=== PATIENT | male | born 1960 | race Caucasian/White ===

== ENCOUNTER 2021-08-30 11:56 | Emergency (ER) | payer BC ==
[2021-08-30 13:06] LABS: #Eosinphils 0.1 thou/uL (0.0-0.7); #Lymphocytes 2.6 thou/uL (1.20-3.40); #Monocytes 0.8 thou/uL (0.11-0.59); #Neutrophils 6.5 thou/uL (1.40-6.50); %Basophils 0.1 % (0.0-1.0); %Eosinophils 0.5 % (0.0-10.0); %Lymphocytes 25.7 % (21.0-51.0); %Monocytes 8.3 % (0.0-10.0); %Neutrophils 65.4 % (42.0-75.0); Hemoglobin 18.1 g/dL (14.0-18.0); Mean Corpuscular HGB CONC 34.6 g/dL (32.0-36.0); Mean Corpuscular Hemoglobin 31.8 pg (27.0-31.0); Mean Corpuscular Volume 91.8 fL (78.0-98.0); Mean Platelet Volume 7.3 fL (7.4-10.4); Platelet Count 170 thou/uL (130-400); RBC Distribution Width 12.7 % (11.5-14.5); Red Blood Cell (RBC) Count 5.69 mill/uL (4.70-6.10); White Blood Cell (WBC) Count 9.9 thou/uL (4.8-10.8)
[2021-08-30 13:28] LABS: ALT (SGPT) 25 U/L (8-55); AST (SGOT) 15 U/L (5-34); Albumin 4.5 g/dL (3.4-4.8); Alkaline Phosphatase 119 U/L (40-110); Anion Gap 15 mmol/L (10-20); BUN (Urea Nitrogen) 12 mg/dL (8.4-25.7); Bilirubin, Total 1.6 mg/dL (0.2-1.2); Calc. Creatinine Clearance 0 mL/min (70-130); Calcium 9.3 mg/dL (7.8-10.44); Carbon Dioxide 25 mmol/L (23-31); Chloride 99 mmol/L (98-107); Globulin 2.9 g/dL (2.4-3.5); Glucose 165 mg/dL (80-115); Lipase 13 U/L (8-78); Potassium 4.3 mmol/L (3.5-5.1); Protein, Total 7.4 g/dL (5.8-8.1); Sodium 135 mmol/L (136-145)
[2021-08-30] MEDS ORDERED: Mag-Al 1200 mg/1200 mg/30 ML UDCUP ONE (14:38)
[2021-08-30] MEDS ORDERED: Lidocaine Viscous Sol 2% 15 ml UD Cup ONE (14:38)
[2021-08-30 15:16] LABS: Bilirubin Negative (Negative); Blood, Urine Negative (Negative); Clarity Clear (Clear); Glucose, Urine (Dipstick) Greater than 1000 mg/dL (Negative); Ketone, Urine 40 mg/dL (Negative); Leukocyte Negative Leu/uL (Negative); Nitrite Negative (Negative); Protein, Urine (Dipstick) 10 mg/dL (Neg-Trace); Specific Gravity, Urine 1.034 (1.002-1.036); Urobilinogen Normal mg/dL (Less than 2); pH, Urine 5.5 (5.0-9.0)
== END 2021-08-30 16:56 | disposition home or self-care (01) ==
LOC: ERS 11:56
DX: K29.00 Acute gastritis without bleeding (principal); Z79.899 Other long term (current) drug therapy; Z79.82 Long term (current) use of aspirin; I10 Essential (primary) hypertension; I48.91 Unspecified atrial fibrillation; E11.9 Type 2 diabetes mellitus without complications; K21.9 Gastro-esophageal reflux disease without esophagitis; E78.00 Pure hypercholesterolemia, unspecified
CPT/HCPCS: 36415; 71045; 76705; 80053; 81003; 83690; 84484; 85025; 93005

== ENCOUNTER 2023-05-12 16:00 | Inpatient (IN) | payer BC ==
[2023-05-12 16:42] LABS: #Eosinphils 0.1 thou/uL (0.0-0.7); #Neutrophils 7.6 thou/uL (1.40-6.50); %Basophils 0.3 % (0.0-1.0); %Eosinophils 0.4 % (0.0-10.0); %Lymphocytes 24.5 % (21.0-51.0); %Monocytes 8.4 % (0.0-10.0); %Neutrophils 65.9 % (42.0-75.0); Hemoglobin 18.3 g/dL (14.0-18.0); Mean Corpuscular HGB CONC 35.1 g/dL (32.0-36.0); Mean Corpuscular Hemoglobin 32.2 pg (27.0-31.0); Mean Corpuscular Volume 91.7 fl (78.0-98.0); Mean Platelet Volume 10.4 fL (7.4-10.4); Platelet Count 149 10x3/uL (130-400); RBC Distribution Width 13.5 % (11.5-14.5); Red Blood Cell (RBC) Count 5.68 mill/uL (4.70-6.10); White Blood Cell (WBC) Count 11.5 10x3/uL (4.8-10.8)
[2023-05-12 17:06] LABS: ALT (SGPT) 25 U/L (8-55); AST (SGOT) 18 U/L (5-34); Albumin 4.6 g/dL (3.4-4.8); Alkaline Phosphatase 115 U/L (40-110); Anion Gap 15 mmol/L (10-20); BUN (Urea Nitrogen) 18 mg/dL (8.4-25.7); Bilirubin, Total 1.4 mg/dL (0.2-1.2); Calc. Creatinine Clearance 0 mL/min (70-130); Calcium 9.2 mg/dL (7.8-10.44); Carbon Dioxide 25 mmol/L (23-31); Chloride 101 mmol/L (98-107); Estimated GFR 62; Globulin 2.6 g/dL (2.4-3.5); Glucose 149 mg/dL (80-115); Protein, Total 7.2 g/dL (5.8-8.1); Sodium 136 mmol/L (136-145)
[2023-05-12 17:07] LABS: PTT 30.5 sec (22.9-36.1); Prothrombin Time 13.3 sec (12.0-14.7)
[2023-05-12] MEDS ORDERED: dilTIAZem 125 MG/25 ML SDV ONE ×4 (17:39→21:06)
[2023-05-12] MEDS ORDERED: dilTIAZem 25 MG/5 ML VIAL ONE (17:40)
[2023-05-12] MEDS ORDERED: Metoprolol Tartrate 25 MG TAB ONE (19:15)
[2023-05-12] MEDS ORDERED: Flecainide 50 MG TAB PO SCH (19:30)
[2023-05-12] MEDS ORDERED: Aspirin Chewable 81 MG TAB PO SCH (22:15)
[2023-05-13] MEDS ORDERED: Aspirin Chewable 81 MG TAB ONE (00:12)
[2023-05-13] MEDS: dilTIAZem 125 MG in Sodium Chloride 0.9% 100 ML IVPB SCH ×2 (01:40→09:57)
[2023-05-13 02:16] VITALS: BMI 26.6
[2023-05-13 04:29] LABS: RBC Distribution Width 13.6 % (11.5-14.5)
[2023-05-13 04:31] LABS: Hemoglobin 17.9 g/dL (14.0-18.0); Mean Corpuscular Hemoglobin 31.5 pg (27.0-31.0); Mean Corpuscular Volume 92.8 fl (78.0-98.0); Mean Platelet Volume 10.8 fL (7.4-10.4); Platelet Count 135 10x3/uL (130-400); Red Blood Cell (RBC) Count 5.68 mill/uL (4.70-6.10); White Blood Cell (WBC) Count 12.5 10x3/uL (4.8-10.8)
[2023-05-13 04:50] LABS: ALT (SGPT) 22 U/L (8-55); AST (SGOT) 17 U/L (5-34); Albumin 4.2 g/dL (3.4-4.8); Alkaline Phosphatase 101 U/L (40-110); Anion Gap 13 mmol/L (10-20); BUN (Urea Nitrogen) 19 mg/dL (8.4-25.7); Bilirubin, Total 1.2 mg/dL (0.2-1.2); Calc. Creatinine Clearance 72 mL/min (70-130); Calcium 8.7 mg/dL (7.8-10.44); Carbon Dioxide 24 mmol/L (23-31); Chloride 101 mmol/L (98-107); Estimated GFR 73; Globulin 2.5 g/dL (2.4-3.5); Glucose 93 mg/dL (80-115); Potassium 4.6 mmol/L (3.5-5.1); Protein, Total 6.7 g/dL (5.8-8.1); Sodium 133 mmol/L (136-145)
[2023-05-13] MEDS ORDERED: Nitroglycerin 0.4 MG TAB (25 Tab Bottle) SL PRN (08:49)
[2023-05-13] MEDS ORDERED: Aspirin Chewable 81 MG TAB PO SCH (09:00)
[2023-05-13] MEDS ORDERED: dilTIAZem 30 MG TAB PO SCH (09:00)
[2023-05-13] MEDS ORDERED: Flecainide 50 MG TAB PO SCH (09:00)
[2023-05-13] MEDS ORDERED: dilTIAZem 125 MG/25 ML SDV ONE (09:52)
[2023-05-13] MEDS ORDERED: Metoprolol Tartrate 25 MG TAB ONE (09:55)
[2023-05-13] MEDS: Metoprolol Tartrate 25 MG TAB PO SCH ×2 (09:57→21:41)
[2023-05-13] MEDS ORDERED: Glucagon 1 MG/ML KIT IM PRN (11:16)
[2023-05-13] MEDS ORDERED: HumaLOG 300 UNITS/3 ML VIAL SC PRN ×2 (11:16)
[2023-05-13] MEDS ORDERED: Dextrose 50% Abboject 50 ML SYRINGE SLOW IVP PRN (11:16)
[2023-05-13] MEDS ORDERED: Dextrose 5% in Water 1,000 ML IV PRN (11:16)
[2023-05-13] MEDS: Flecainide 50 MG TAB PO SCH ×2 (11:25→21:41)
[2023-05-14 07:48] VITALS: TEMP 97.5
[2023-05-14] MEDS ORDERED: Famotidine/PF 20 mg/2ml Vial ONE ×2 (08:27)
[2023-05-14] MEDS ORDERED: fentaNYL 50 mcg/mL 1 mL Vial ONE (08:28)
[2023-05-14] MEDS ORDERED: PROPOFOL 20 ML ONE (08:28)
[2023-05-14] MEDS ORDERED: PROPOFOL 200 MG/20 ML VIAL ONE (08:59)
[2023-05-14] MEDS ORDERED: Empagliflozin 25 MG TAB PO SCH (09:00)
[2023-05-14] MEDS: Metoprolol Tartrate 25 MG TAB PO SCH (09:44)
[2023-05-14] MEDS: Flecainide 50 MG TAB PO SCH (09:44)
[2023-05-14 13:13] VITALS: BP 97/66
== END 2023-05-14 16:20 | disposition home or self-care (01) | DRG 310 ==
LOC: ERS 16:00 → ERHOLD 21:12 → OBSVTOIN 05-13 10:59 → 2NO 05-13 13:11
PROVIDERS: ADMIT Internal Medicine Nephrology; ATTEND Family Medicine
PROC: 5A2204Z Restoration of Cardiac Rhythm, Single (ICD-10-PCS; principal; 2023-05-14)
PROC: B24BZZ4 Ultrasonography of Heart with Aorta, Transesophageal (ICD-10-PCS; 2023-05-14)
DX: I48.92 Unspecified atrial flutter (principal); E11.9 Type 2 diabetes mellitus without complications; I10 Essential (primary) hypertension; K21.9 Gastro-esophageal reflux disease without esophagitis; E78.00 Pure hypercholesterolemia, unspecified; I48.0 Paroxysmal atrial fibrillation; I08.0 Rheumatic disorders of both mitral and aortic valves; Z82.49 Family history of ischemic heart disease and other diseases of the circulatory system; Z79.82 Long term (current) use of aspirin; Z79.899 Other long term (current) drug therapy; Z90.89 Acquired absence of other organs; Z98.890 Other specified postprocedural states
CPT/HCPCS: 36415; 36416; 71045; 80053; 83735; 83880; 84443; 84484; 85025; 85027; 85610; 85730; 92960; 93005; 93010; 93312; 94760; 96365; 96366; 96376; J1650; J1815; J2704; J3010; J3490; S0028

== ENCOUNTER 2023-08-06 12:32 | Outpatient (CLI) | payer BC ==
[2023-08-06 13:51] LABS: Hematocrit 45.3 % (38.8-50.0); Hemoglobin 15.8 g/dL (13.5-17.5); Mean Corpuscular HGB CONC 34.9 g/dL (32.0-36.0); Mean Corpuscular Hemoglobin 31.7 pg (27.0-33.0); Mean Platelet Volume 10.2 fl (7.4-10.4); Platelet Count 119 10x3/uL (150-450); RBC Distribution Width 13.2 % (11.5-14.5); Red Blood Cell (RBC) Count 4.98 10x6/uL (4.32-5.72); White Blood Cell (WBC) Count 6.2 10x3/uL (3.5-10.5)
[2023-08-06 13:56] LABS: ALT (SGPT) 17 U/L (8-55); AST (SGOT) 15 U/L (5-34); Albumin 4.5 g/dL (3.4-4.8); Alkaline Phosphatase 108 U/L (40-110); Anion Gap 14 mmol/L (10-20); BUN (Urea Nitrogen) 16 mg/dL (8.4-25.7); Calc. Creatinine Clearance 0 mL/min (70-130); Carbon Dioxide 26 mmol/L (23-31); Chloride 103 mmol/L (98-107); Estimated GFR 73; Globulin 2.5 g/dL (2.4-3.5); Glucose 150 mg/dL (80-115); PTT 34.5 sec (22.0-33.0); Potassium 4.3 mmol/L (3.5-5.1); Prothrombin Time 10.9 sec (9.5-12.1); Sodium 139 mmol/L (136-145)
== END 2023-08-06 12:33 | disposition home or self-care (01) ==
LOC: LABBT 12:32
PROVIDERS: ATTEND Specialist
DX: Z01.812 Encounter for preprocedural laboratory examination (principal); I48.0 Paroxysmal atrial fibrillation
CPT/HCPCS: 80053; 85027; 85610; 85730

== ENCOUNTER → 2023-08-08 | Day surgery (SDC) | payer BC ==
[2023-08-06 13:20] VITALS: BMI 25.8
[~2023-08-08] MED LIST: Dexamethasone 20 MG/5 ML VIAL ONE; Fentanyl 250 MCG/5 ML VIAL ONE; Heparin 10,000 UNITS/ 10 ML VIAL ONE; Heparin 25,000 units/D5W 500 ML ONE; Isoproterenol 0.2 MG/1 ML AMP ONE; Midazolam HCl 2 mg/2 ml Vial ONE; Ondansetron PF 4 MG/2 ML Vial ONE; PROPOFOL 200 MG/20 ML VIAL ONE; Phenylephrine 10 MG/ML VIAL ONE; Protamine Sulfate 50 MG/5 ML VIAL ONE; Rocuronium Bromide 10 MG/ML (10ML VIAL) ONE; SUGAMMADEX SODIUM 200 MG/2 ML VIAL ONE
== END ==
LOC: SDC 05:56
PROVIDERS: ATTEND Specialist
PROC: 5A1223Z Performance of Cardiac Pacing, Continuous (ICD-10-PCS; principal; 2023-08-08)
PROC: 02583ZZ Destruction of Conduction Mechanism, Percutaneous Approach (ICD-10-PCS; principal; 2023-08-08)
PROC: 02K83ZZ Map Conduction Mechanism, Percutaneous Approach (ICD-10-PCS; principal; 2023-08-08)
DX: I48.0 Paroxysmal atrial fibrillation (principal); Z79.82 Long term (current) use of aspirin; I48.11 Longstanding persistent atrial fibrillation; I10 Essential (primary) hypertension; E78.5 Hyperlipidemia, unspecified; K21.9 Gastro-esophageal reflux disease without esophagitis; E55.9 Vitamin D deficiency, unspecified; E11.9 Type 2 diabetes mellitus without complications; Z79.01 Long term (current) use of anticoagulants; Z98.890 Other specified postprocedural states; Z90.89 Acquired absence of other organs; Z79.899 Other long term (current) drug therapy
CPT/HCPCS: 85347; 93005; 93622; 93623; 93656; 93657; C1732; C1759; C1760; C1884; C1893; C1894; J0153; J1100; J1644; J2250; J2370; J2405; J2704; J2720; J3010

== ENCOUNTER 2024-03-29 08:14 | Day surgery (SDC) | payer BC ==
[2024-03-26 12:16] VITALS: BMI 25.8
[2024-03-26 13:13] LABS: Hematocrit 47.5 % (38.8-50.0); Hemoglobin 16.7 g/dL (13.5-17.5); Mean Corpuscular HGB CONC 35.2 g/dL (32.0-36.0); Mean Platelet Volume 10.8 fL (7.4-10.4); Platelet Count 123 10x3/uL (150-450); Red Blood Cell (RBC) Count 5.22 10x6/uL (4.32-5.72); White Blood Cell (WBC) Count 6.7 10x3/uL (3.5-10.5)
[2024-03-26 13:19] LABS: INR-International Normal Ratio 1.1; PTT 32.3 sec (22.0-33.0); Prothrombin Time 11.4 sec (9.5-12.1)
[2024-03-26 13:26] LABS: Anion Gap 17 mmol/L (10-20); BUN (Urea Nitrogen) 12 mg/dL (8.4-25.7); Calc. Creatinine Clearance 56 mL/min (70-130); Calcium 9.7 mg/dL (7.8-10.44); Carbon Dioxide 25 mmol/L (23-31); Chloride 100 mmol/L (98-107); Estimated GFR 57; Glucose 343 mg/dL (80-115); Potassium 4.5 mmol/L (3.5-5.1); Sodium 137 mmol/L (136-145)
[~2024-03-29 08:14] MED LIST changes: -Dexamethasone 20 MG/5 ML VIAL ONE; -Fentanyl 250 MCG/5 ML VIAL ONE; -Midazolam HCl 2 mg/2 ml Vial ONE; -Ondansetron PF 4 MG/2 ML Vial ONE; -PROPOFOL 200 MG/20 ML VIAL ONE; -Phenylephrine 10 MG/ML VIAL ONE; -Rocuronium Bromide 10 MG/ML (10ML VIAL) ONE; -SUGAMMADEX SODIUM 200 MG/2 ML VIAL ONE
[2024-03-29] MEDS ORDERED: SUCCINYLCHOLINE/SOD CL,ISO/PF 200 MG/10 ML SYRINGE FS ONE (08:37)
[2024-03-29] MEDS ORDERED: PROPOFOL 20 ML ONE ×2 (08:38→09:04)
[2024-03-29] MEDS ORDERED: fentaNYL 50 mcg/mL 1 mL Vial ONE (08:38)
[2024-03-29] MEDS ORDERED: Midazolam HCl 2 mg/2 ml Vial ONE (08:38)
[2024-03-29] MEDS ORDERED: Ondansetron PF 4 MG/2 ML Vial ONE (08:53)
[2024-03-29] MEDS ORDERED: Dexamethasone 20 MG/5 ML VIAL ONE (08:53)
[2024-03-29] MEDS ORDERED: PHENYLEPHRINE-NS 100 MCG/ML 10 ML SYRINGE ONE (09:34)
== END 2024-03-29 16:23 | disposition home or self-care (01) ==
LOC: SDC 08:14
PROVIDERS: ATTEND Internal Medicine Cardiovascular Disease
PROC: 4A0274Z Measurement of Cardiac Electrical Activity, Via Natural or Artificial Opening (ICD-10-PCS; principal; 2024-03-29)
PROC: 4A027FZ Measurement of Cardiac Rhythm, Via Natural or Artificial Opening (ICD-10-PCS; principal; 2024-03-29)
DX: I48.19 Other persistent atrial fibrillation (principal); I10 Essential (primary) hypertension; E11.65 Type 2 diabetes mellitus with hyperglycemia
CPT/HCPCS: 80048; 85027; 85347; 85610; 85730; 92960; 93005; 93010; 93623; 93655; 93656; C1732; C1759; C1760; C1884; C1893; C1894; J1100; J1644; J2250; J2405; J2704; J2720; J3010

== ENCOUNTER 2025-07-27 10:04 | Outpatient (CLI) | payer MEDICARE | END 2025-07-27 10:05 | disposition home or self-care (01) | LOC: LABBT 10:04 | PROVIDERS: ATTEND Internal Medicine Cardiovascular Disease | DX: Z01.810 Encounter for preprocedural cardiovascular examination (principal); I48.0 Paroxysmal atrial fibrillation | CPT/HCPCS: 93005; 93010 ==

== ENCOUNTER 2025-08-11 11:54 | Inpatient (IN) | payer MEDICARE ==
[2025-08-11] MEDS ORDERED: Adenosine 6 mg (2 mL) VIAL ONE (12:13)
[2025-08-11] MEDS ORDERED: dilTIAZem 25 MG/5 ML VIAL ONE ×2 (12:24)
[2025-08-11 12:50] LABS: ALT (SGPT) 16 U/L (Less than 45); AST (SGOT) 24 U/L (11-34); Albumin 4.7 g/dL (3.1-4.5); Alkaline Phosphatase 158 U/L (40-110); Anion Gap 19 mmol/L (10-20); BUN (Urea Nitrogen) 20 mg/dL (8.4-25.7); Bilirubin, Total 1.2 mg/dL (0.3-1.2); Calc. Creatinine Clearance 0 mL/min (70-130); Calcium 9.8 mg/dL (7.8-10.44); Carbon Dioxide 21 mmol/L (23-31); Chloride 99 mmol/L (98-107); Globulin 3.1 g/dL (2.4-3.5); Glucose 323 mg/dL (80-115); Potassium 4.4 mmol/L (3.5-5.1); Sodium 135 mmol/L (136-145)
[2025-08-11 13:46] LABS: #Basophils 0.06 10x3/uL (0.0-0.2); #Eosinophils 0.03 10x3/uL (0.0-0.7); #Monocytes 1.19 10x3/uL (0.11-0.59); #Neutrophils 14.88 10x3/uL (1.40-6.50); %Basophils 0.3 % (0.0-1.0); %Eosinophils 0.2 % (0.0-10.0); %Lymphocytes 12.2 % (21.0-51.0); %Monocytes 6.3 % (0.0-10.0); %Neutrophils 79.3 % (42.0-75.0); Hematocrit 53.3 % (42.0-52.0); Hemoglobin 18.5 g/dL (14.0-18.0); Mean Corpuscular Hemoglobin 31.4 pg (27.0-31.0); Mean Corpuscular Volume 90.3 fL (78.0-98.0); Platelet Count 244 10x3/uL (130-400); Red Blood Cell (RBC) Count 5.90 mill/uL (4.70-6.10); White Blood Cell (WBC) Count 18.76 10x3/uL (4.8-10.8)
[2025-08-11] MEDS ORDERED: Furosemide 40 MG (4 mL) VIAL ONE (13:51)
[2025-08-11] MEDS ORDERED: Aspirin Chewable 81 MG TAB ONE (13:52)
[2025-08-11] MEDS ORDERED: Enoxaparin 80 MG (0.8 mL) SYRINGE ONE (13:53)
[2025-08-11 14:07] LABS: Anisocytosis SLIGHT = 6-15 cells HPF (0-5); Burr Cells SLIGHT = 2-5 cells HPF (0-1); Macrocytosis SLIGHT = 6-15 cells HPF (0-5); Ovalocytes SLIGHT = 2-5 cells HPF (0-1); Platelet Adequacy Comment Platelets Normal
[2025-08-11] MEDS ORDERED: Glucagon 1 MG/ML KIT IM PRN (14:42)
[2025-08-11] MEDS ORDERED: Acetaminophen 325 MG TAB PO PRN (14:42)
[2025-08-11] MEDS ORDERED: Dextrose 50% Abboject 50 ML SYRINGE SLOW IVP PRN (14:42)
[2025-08-11] MEDS ORDERED: Ondansetron PF 4 MG/2 ML Vial IVP PRN (14:42)
[2025-08-11] MEDS: Diltiazem HCl/D5W 125 MG in Premix 1 BAG IVPB SCH (20:53)
[2025-08-11 21:44] VITALS: BMI 25.7
[2025-08-12 03:26] LABS: #Basophils 0.04 10x3/uL (0.0-0.2); #Eosinophils 0.06 10x3/uL (0.0-0.7); #Monocytes 1.17 10x3/uL (0.11-0.59); #Neutrophils 9.63 10x3/uL (1.40-6.50); %Basophils 0.3 % (0.0-1.0); %Eosinophils 0.4 % (0.0-10.0); %Lymphocytes 23.4 % (21.0-51.0); %Monocytes 8.1 % (0.0-10.0); %Neutrophils 67.0 % (42.0-75.0); Hematocrit 47.6 % (42.0-52.0); Hemoglobin 16.5 g/dL (14.0-18.0); Mean Corpuscular Hemoglobin 31.4 pg (27.0-31.0); Mean Corpuscular Volume 90.5 fL (78.0-98.0); Platelet Count 148 10x3/uL (130-400); Red Blood Cell (RBC) Count 5.26 mill/uL (4.70-6.10); White Blood Cell (WBC) Count 14.37 10x3/uL (4.8-10.8)
[2025-08-12 03:48] LABS: Anion Gap 14 mmol/L (10-20); BUN (Urea Nitrogen) 18 mg/dL (8.4-25.7); Calc. Creatinine Clearance 74 mL/min (70-130); Calcium 8.7 mg/dL (7.8-10.44); Carbon Dioxide 22 mmol/L (23-31); Chloride 106 mmol/L (98-107); Glucose 161 mg/dL (80-115); Potassium 4.0 mmol/L (3.5-5.1); Sodium 138 mmol/L (136-145)
[2025-08-12] MEDS: Aspirin 81 mg Enteric Coated Tablet PO SCH (09:46)
[2025-08-12] MEDS: Pantoprazole 40 MG DR.TAB PO SCH (09:46)
[2025-08-12] MEDS: Mupirocin 1 GM TUBE NASAL DECOLONIZATION NASAL SCH (09:46)
[2025-08-12] MEDS ORDERED: Enoxaparin 80 MG (0.8 mL) SYRINGE SC SCH (15:30)
[2025-08-12] MEDS: Enoxaparin 60 MG (0.6 mL) SYRINGE SC SCH ×2 (15:40→16:08)
[2025-08-12] MEDS ORDERED: Lidocaine 1% PF 5 ML VIAL ONE (17:04)
[2025-08-12] MEDS ORDERED: Glycopyrrolate 0.2 MG/ML 5 ML SYRINGE ONE (17:04)
[2025-08-12] MEDS ORDERED: PHENYLEPHRINE-NS 100 MCG/ML 10 ML SYRINGE ONE (17:04)
[2025-08-12] MEDS ORDERED: PROPOFOL 200 MG/20 ML VIAL ONE (17:04)
[2025-08-12] MEDS: Apixaban 2.5 MG TAB PO SCH (21:10)
[2025-08-13 04:44] LABS: #Basophils 0.03 10x3/uL (0.0-0.2); #Eosinophils 0.06 10x3/uL (0.0-0.7); #Monocytes 0.69 10x3/uL (0.11-0.59); #Neutrophils 5.46 10x3/uL (1.40-6.50); %Basophils 0.3 % (0.0-1.0); %Eosinophils 0.7 % (0.0-10.0); %Lymphocytes 27.1 % (21.0-51.0); %Monocytes 8.0 % (0.0-10.0); %Neutrophils 63.6 % (42.0-75.0); Hematocrit 42.8 % (42.0-52.0); Hemoglobin 14.3 g/dL (14.0-18.0); Mean Corpuscular Hemoglobin 30.8 pg (27.0-31.0); Mean Corpuscular Volume 92.2 fL (78.0-98.0); Platelet Count 142 10x3/uL (130-400); Red Blood Cell (RBC) Count 4.64 mill/uL (4.70-6.10); White Blood Cell (WBC) Count 8.60 10x3/uL (4.8-10.8)
[2025-08-13 05:00] LABS: Anion Gap 12 mmol/L (10-20); BUN (Urea Nitrogen) 17 mg/dL (8.4-25.7); Calc. Creatinine Clearance 83 mL/min (70-130); Calcium 8.3 mg/dL (7.8-10.44); Carbon Dioxide 23 mmol/L (23-31); Chloride 108 mmol/L (98-107); Glucose 125 mg/dL (80-115); Potassium 3.8 mmol/L (3.5-5.1); Sodium 139 mmol/L (136-145)
[2025-08-13 07:44] VITALS: TEMP 97.6
== END 2025-08-13 09:40 | disposition home or self-care (01) | DRG 281 ==
LOC: ERS 11:54 → ERHOLD 14:27 → OBSVTOIN 16:23 → IMCU/EMU 19:51
PROVIDERS: ADMIT Internal Medicine; ATTEND Internal Medicine
PROC: B245ZZ4 Ultrasonography of Left Heart, Transesophageal (ICD-10-PCS; principal; 2025-08-12)
PROC: 5A2204Z Restoration of Cardiac Rhythm, Single (ICD-10-PCS; 2025-08-12)
DX: I47.10 Supraventricular tachycardia, unspecified (principal); E87.1 Hypo-osmolality and hyponatremia; I21.A1 Myocardial infarction type 2; N17.9 Acute kidney failure, unspecified; E11.9 Type 2 diabetes mellitus without complications; Z98.890 Other specified postprocedural states; K21.9 Gastro-esophageal reflux disease without esophagitis; Z79.899 Other long term (current) drug therapy; I48.19 Other persistent atrial fibrillation
CPT/HCPCS: 36415; 36416; 71045; 80048; 80053; 83880; 84443; 84484; 85025; 92960; 93005; 93010; 93306; 93312; 96372; 96374; 96375; 96376; J0153; J1650; J1815; J1940; J2704; J7030